=== PATIENT | female | born 1975 | race Hispanic/Latino ===

== ENCOUNTER → 2018-08-11 | Outpatient (CLI) | payer MEDICARE, OTHER | END | disposition home or self-care (01) | LOC: RAH 15:41 | PROVIDERS: ATTEND Surgery | DX: K40.90 Unilateral inguinal hernia, without obstruction or gangrene, not specified as recurrent (principal) | CPT/HCPCS: 76882 ==

== ENCOUNTER 2024-08-07 18:01 | Emergency (ER) | payer OTHER ==
[~2024-08-07] VITALS: Ht 162.6 cm; Wt 98.0 kg
--- NOTE | 2024-08-07 18:33 | ERN ---
ED Note History of Present Illness Stated Complaint: FLANK PAIN Chief Complaint: Flank Pain Time Seen by MD: 18:04 Dictation: PATIENT IS A 49-YEAR-OLD FEMALE COMING IN TODAY WITH RIGHT FLANK PAIN THAT RADIATES TO RIGHT UPPER AND LOWER QUADRANTS ONSET 2-3 DAYS PRIOR TO ARRIVAL. SHE HAS HAD NAUSEA WITHOUT VOMITING LOW-GRADE FEVER. STATES SHE HAS A HISTORY OF KIDNEY STONES. STORE C[facility]IER IS IN [place]. Allergies: Coded Allergies: No Known Drug Allergies (Unverified Allergy, Unknown, 08/07/24) Past Medical History Past Medical History: Diabetes-Type II, High Cholesterol, Hypertension Surgical History: Other History: Not Applicable RN Note Reviewed/Agreed w/PFSH: Yes Review of System Dictation CONSTITUTIONAL: NEGATIVE EXCEPT FOR HPI FEVER HEAD/FACE: NEGATIVE EXCEPT FOR HPI EENT: NEGATIVE EXCEPT FOR HPI RESPIRATORY: NEGATIVE EXCEPT FOR HPI GASTROINTESTINAL/ABDOMINAL: NEGATIVE EXCEPT FOR HPI RIGHT FLANK PAIN THAT RADIATES TO RIGHT LOWER QUADRANT/NAUSEA GENITOURINARY: NEGATIVE EXCEPT FOR HPI MUSCULOSKELETAL: NEGATIVE EXCEPT FOR HPI INTEGUMENTARY: NEGATIVE EXCEPT FOR HPI NEUROLOGICAL/PSYCH: NEGATIVE EXCEPT FOR HPI HEMATOLOGIC/LYMPHATIC: NEGATIVE EXCEPT FOR HPI ALL SYSTEMS NEGATIVE, EXCEPT NOTED ABOVE. 13 POINT REVIEW OF SYSTEMS ASSESSED AND ALL NEGATIVE EXCEPT FOR ABOVE. Initial Vital Sign VS Vital Signs Date Time Temp Pulse Resp B/P (MAP) Pulse Ox O2 Delivery O2 Flow Rate FiO2 08/07/24 18:26 98.2 90 16 140/90 100 Room Air 08/07/24 20:35 0 21 Physical Exam Dictation VITAL SIGNS REVIEWED GENERAL APPEARANCE: ALERT, ORIENTED X 3, MODERATE ACUTE DISTRESS, WELL DEVELOPED, NOURISHED. HEAD AND FACE: NON-TRAUMATIC. EYES: PERRL, PINK CONJUNCTIVAS, EYELID NO TRAUMA, ANTERIOR CHAMBER WITH ARCUS SENILIS. EARS: PINNAS INTACT AND NO SIGNS OF TRAUMA OR ERYTHEMA EAR CANALS CLEAR AND NO DISCHARGE TM NO ERYTHEMA NOSE: NO DISCHARGE, NO BLEEDING. OROPHARYNX: MOUTH NORMAL, TONGUE PINK, PHARYNX CLEAR,NO ERYTHEMA, TONSILS NO EXUDATES, NO ABSCESSES NOTED, MUCOUS MEMBRANE MOIST NECK: SUPPLE, NON-TENDER, NO THYROMEGALY, NO MASSES, NO JVD, NO BRUITS BREAST:DEFERRED CHEST:NO TENDERNESS, NO CREPITUS, NO PARADOXICAL MOVEMENT, NO RETRACTIONS LUNGS:CLEAR, WELL-VENTILATED, SYMMETRIC, NO RALES, NO WHEEZING, NO RHONCHI, NO STRIDOR, GOOD BREATH SOUNDS BILATERALLY HEART: REGULAR RATE, REGULAR RHYTHM, NO MURMUR, NO GALLOPS VASCULAR: NO PERIPHERAL EDEMA, ABDOMEN: SOFT, POSITIVE BOWEL SOUNDS, NONDISTENDED, NO GUARDING, , NO REBOUND, NO MASSES NO HEPATOMEGALY, NO SPLENOMEGALY, NO ROBLES'S SIGN, NO HERNIAS. POSITIVE CVAT RIGHT RECTAL: DEFERRED GENITAL: DEFERRED NEUROLOGICAL: NORMAL SPEECH, MOTOR FUNCTION INTACT, SENSORY FUNCTION INTACT MUSCULOSKELETAL: NECK NONTENDER, FULL RANGE OF MOTION, BACK NONTENDER, FULL RANGE OF MOTION, EXTREMITIES: NONTENDER, FULL RANGE OF MOTION SKIN: COLOR PINK, DRY, NO TURGOR, NO RASH, NO LACERATIONS, NO ABRASIONS, NO CONTUSIONS. LYMPHATIC: DEFERRED L EXAM Results (Laboratory/Radiology) Laboratory/Radiology Laboratory Tests Test 08/07/24 19:37 08/07/24 20:46 White Blood Count 10.5 K/uL (4.8-10.8) Red Blood Count 4.20 MIL/uL (4.00-5.50) Hemoglobin 11.1 g/dL (12.0-16.0) L Hematocrit 34.6 % (36-48) L Mean Corpuscular Volume 82.4 fL (79-99) Mean Corpuscular Hemoglobin 26.4 pg (27.0-33.0) L Mean Corpuscular Hemoglobin Concent 32.1 g/dL (32.0-36.0) Red Cell Distribution Width 13.6 % (11.0-15.5) Platelet Count 349 K/uL (130-400) Mean Platelet Volume 10.7 fL (7.5-10.5) H Immature Granulocyte % (Auto) 0.4 % (0-1) Neutrophils (%) (Auto) 72.4 % (40.0-77.0) Lymphocytes (%) (Auto) 17.5 % (21.0-51.0) L Monocytes (%) (Auto) 7.9 % (3.0-13.0) Eosinophils (%) (Auto) 1.0 % (0.0-8.0) Basophils (%) (Auto) 0.8 % (0.0-5.0) Neutrophils # (Auto) 7.6 K/uL (1.8-7.7) Lymphocytes # (Auto) 1.8 K/uL (1.0-4.8) Monocytes # (Auto) 0.8 K/uL (0.1-1.0) Eosinophils # (Auto) 0.10 K/uL (0.00-0.70) Basophils # (Auto) 0.08 K/uL (0.00-0.20) Absolute Immature Granulocyte (auto 0.04 K/uL (0-1) Nucleated Red Blood Cells 0.0 % (0.0-0.19) Sodium Level 143 mmol/L (136-145) Potassium Level 3.7 mmol/L (3.5-5.1) Chloride Level 105 mmol/L (101-111) Carbon Dioxide Level 29 mmol/L (21-32) Blood Urea Nitrogen 10 mg/dL (7-18) Creatinine 0.8 mg/dL (0.5-1.0) Glomerular Filtration Rate Calc 90 mL/min (>90) Random Glucose 205 mg/dL (70-105) H Lactic Acid Level 1.8 mmol/L (0.8-2.5) Total Calcium 8.7 mg/dL (8.5-10.1) Lipase 40 U/L (16-77) Urine Color LIGHT-YELLOW (YELLOW) Urine Appearance CLEAR (CLEAR) Urine pH 5.0 (5.0-8.0) Urine Specific [place] 1.022 (1.001-1.031) Urine Protein 10 mg/dL (NEGATIVE) H Urine Glucose (UA) TRACE mg/dL (NEGATIVE) H Urine Ketones NEGATIVE mg/dL (NEGATIVE) Urine Occult Blood MODERATE (NEGATIVE) H Urine Nitrate NEGATIVE (NEGATIVE) Urine Bilirubin NEGATIVE mg/dL (NEGATIVE) Urine Urobilinogen 0.2 mg/dL (0.2-1.0) Urine Leukocyte Esterase NEGATIVE Bill/uL Urine RBC 26-50 /HPF (0-1) H Urine WBC 2-5 /HPF (0-1) H Urine Squamous Epithelial Cells FEW /HPF (0-2) Urine Bacteria None /HPF (None Seen) Urine Hyaline Casts 2-5 /LPF (0-1 /LPF) H Signed PATIENT: TAYA SHAY MR#: [id number] : 1975 SEX: F AGE: 49 LOCATION: [facility] ORDER [id number] STATUS: REG ER REPORT#: [id number] SERVICE [id number] REASON: RIGHT FLANK PAIN THAT RADIATES TO RIGHT LOWER QUADRANT. ORDERING PHYSICIAN: GREYSON WISE NP PROCEDURE: ABD PEL WO - CT ABDOMEN/PELVIS W/O CONTRAST CT ABDOMEN/PELVIS W/O CONTRAST INDICATION: RIGHT FLANK PAIN THAT RADIATES TO RIGHT LOWER QUADRANT. TECHNIQUE: CT ABDOMEN/PELVIS W/O CONTRAST. Oral contrast was not given. Coronal and sagittal reformats were performed. CT was performed with one or more of the following dose reduction techniques: Automated exposure control, adjustment of the mA and/or kV according to the patient's size, or use of the iterative reconstruction technique. Comparison: None. FINDINGS: The noncontrast nature this study limits evaluation of abdominal viscera. No pulmonary consolidation or pleural effusion is seen. There is hepatic steatosis. No calcified gallstone is seen. The spleen, pancreas, and adrenal glands are within normal limits. Very mild right hydronephrosis and hydroureter with 4 mm calculus in the proximal ureter. Small right renal cyst is seen. 2 mm calculus in the lower pole of the right kidney and upper pole of the left kidney. Prominent uterus with 6.9 cm mass in the left fundus suggesting fibroid. Consider correlation with nonemergent pelvic ultrasound. No bowel obstruction identified. Appendix is normal in caliber. Degenerative changes of the spine. Visualized aorta is normal in caliber. IMPRESSION: 1. Very mild right hydronephrosis and hydroureter with 4 mm calculus in the proximal ureter. 2 mm calculus in the lower pole of the right kidney and upper pole of the left kidney. Small right renal cyst is seen. 2. Fibroid uterus. Consider correlation with nonemergent pelvic ultrasound.. Labs Reviewed?: Yes ED Course ED Course Orders Procedure Category Date Status Time Cbc With Differential LAB 08/07/24 Complete 18:29 Urinalysis Profile LAB 08/07/24 Complete 18:29 0.9%Nacl 1000ml (Ns PHA 08/07/24 Complete 1000ml) 18:30 Ketorolac PHA 08/07/24 Complete Tromethamine 30mg/Ml 18:30 Ondansetron 4mg Inj PHA 08/07/24 Complete (Zofran 4mg Inj) 18:30 Ct Abdomen/Pelvis W/O CT 08/07/24 Resulted Contrast 18:29 Lipase LAB 08/07/24 Complete 18:29 Basic Metabolic Panel LAB 08/07/24 Complete 18:29 Blood Cult RICHARD 08/07/24 In Process 18:31 Lactic Acid LAB 08/07/24 Complete 18:31 Tamsulosin Hcl PHA 08/07/24 Complete (Flomax) 20:00 Current Medications Medications (Trade) Dose Ordered Sig/Odalys Route PRN Reason Start Time Stop Time Status Last Admin Dose Admin Ketorolac Tromethamine (toRADol) 30 mg ONCE ONCE IVP 08/07/24 18:30 08/07/24 18:35 DC 08/07/24 18:56 Ondansetron HCl (zoFRAN 4MG INJ) 4 mg ONCE ONCE IVP 08/07/24 18:30 08/07/24 18:35 DC 08/07/24 18:56 Sodium Chloride 1,000 ml @ 0 mls/hr ONCE ONCE IV 08/07/24 18:30 08/07/24 18:35 DC 08/07/24 18:56 Tamsulosin HCl (FloMAX) 0.4 mg ONCE ONCE PO 08/07/24 20:00 08/07/24 20:01 DC 08/07/24 20:45 Vital Signs Date Time Temp Pulse Resp B/P (MAP) Pulse Ox O2 Delivery O2 Flow Rate FiO2 08/07/24 20:35 98.2 79 18 152/69 98 Room Air* 0 21 08/07/24 18:26 98.2 90 16 140/90 100 Room Air 2105/patient discharged home with4 mm right nephrolithiasis with small hydronephrosis. Discharged home with Ibuprofen and Flomax told to follow up with in the next 1-2 days increase your water intake. Medical Decision Making MDM MDM: Differential diagnosis: Urolithiasis/pyelonephritis/ureteral colic/hydro urete r/UTI Rationale: Tests considered and ordered secondary to shared decision making include: Radiology/labs Previous outside records reviewed: Old ER visits. Risk of complication and/or morbidity or mortality of patient management: None Medications-Per medication reconciliation Need for hospitalization: Patient does not meet criteria for hospitalization. No Need for emergency major/minor surgery: No There are no social concerns with this patient. Prescription drug management Flomax/ibuprofen/Zofran Prescriptions will include symptomatic care Patient's prior external medical records from other ER visits were reviewed by me as indicated. Prior testing and results from previous visits were reviewed. Prior tests were taken into account with medical decision making and resource utilization, independent historian/historians were used to obtain complete medical history. I independently interpreted the test that were performed, results were reviewed by me and considered findings on radiology if ordered. Medical management and examination interpretation discussions were had by me with other qualified healthcare professionals as indicated for the patient's care. DX & DISP Disposition: Discharge Departure Impression: Primary Impression: Hydronephrosis, right Additional Impressions: Urolithiasis, Ureteral colic Condition: Stable Scripts Ondansetron (Ondansetron Odt) 4 Mg Tab.rapdis 4 MG PO Q6HPRN PRN for nausea, #16 TAB 0 Refills Prov: GREYSON WISE NP 08/07/24 Ibuprofen (Ibuprofen 800 mg Tab) 800 Mg Tab 800 MG PO Q8H PRN for fever or pain, #30 TAB 0 Refills Prov: GREYSON WISE NP 08/07/24 Tamsulosin HCl (Flomax) 0.4 Mg Cap.er.24h 0.4 MG PO DAILY, #15 CAPSULE.DR Prov: GREYSON WISE NP 08/07/24 Additional Instructions: Follow-up with primary care provider in 1 to 2 days. Take medications as directed here in the emergency room. Okay to continue home medications unless otherwise discussed during your visit in the emergency room today. Return to your nearest emergency room if symptoms worsen or if there is no improvement. Call 911 if you need immediate assistance. Take Tylenol or Motrin [id number] as needed and if no contraindications are present. Increase oral hydration. A wound culture or urine culture was ordered here in the emergency room department please follow-up with primary care provider and advise them to get repeat ports from our facility. If you had any Murphy wrap/splints t hat were applied here, please do not remove them until you see your primary care or specialty. Take Flomax daily for the next15 days. Take ibuprofen every 6-8 hours as needed for pain with food. Increase your water intake. Call urologist for appointment in the next 1-2 days. Referrals: SELF,REFERRAL (PCP) KARLEE WINTERS MD Time of Disposition: 21:06 I have reviewed the case, and I agree with, Diagnosis and Plan GREYSON WISE NP Aug 07, 2024 18:33
[2024-08-07] MEDS: ondanSETRON 4MG INJ IVP ONE (18:56)
[2024-08-07] MEDS: 0.9%NACL 1000ML 1,000 ML IV ONE (18:56)
[2024-08-07] MEDS: ketOROlac 30MG VIAL (30MG/ML) IVP ONE (18:56)
--- NOTE | 2024-08-07 19:33 | HMCIMG ---
CT ABDOMEN/PELVIS W/O CONTRAST INDICATION: RIGHT FLANK PAIN THAT RADIATES TO RIGHT LOWER QUADRANT. TECHNIQUE: CT ABDOMEN/PELVIS W/O CONTRAST. Oral contrast was not given. Coronal and sagittal reformats were performed. CT was performed with one or more of the following dose reduction techniques: Automated exposure control, adjustment of the mA and/or kV according to the patient's size, or use of the iterative reconstruction technique. Comparison: None. FINDINGS: The noncontrast nature this study limits evaluation of abdominal viscera. No pulmonary consolidation or pleural effusion is seen. There is hepatic steatosis. No calcified gallstone is seen. The spleen, pancreas, and adrenal glands are within normal limits. Very mild right hydronephrosis and hydroureter with 4 mm calculus in the proximal ureter. Small right renal cyst is seen. 2 mm calculus in the lower pole of the right kidney and upper pole of the left kidney. Prominent uterus with 6.9 cm mass in the left fundus suggesting fibroid. Consider correlation with nonemergent pelvic ultrasound. No bowel obstruction identified. Appendix is normal in caliber. Degenerative changes of the spine. Visualized aorta is normal in caliber. IMPRESSION: 1. Very mild right hydronephrosis and hydroureter with 4 mm calculus in the proximal ureter. 2 mm calculus in the lower pole of the right kidney and upper pole of the left kidney. Small right renal cyst is seen. 2. Fibroid uterus. Consider correlation with nonemergent pelvic ultrasound..
[2024-08-07 19:59] LABS: BASOPHILS # (AUTO) 0.08 K/uL (0.00-0.20); BASOPHILS % (AUTO) 0.8 % (0.0-5.0); HEMATOCRIT 34.6 % (36-48); IMMATURE GRANULOCYTE ABSOLUTE 0.04 K/uL (0-1); LYMPHOCYTES # (AUTO) 1.8 K/uL (1.0-4.8); LYMPHOCYTES % (AUTO) 17.5 % (21.0-51.0); MEAN CORPUSCULAR HEMOGLOBIN 26.4 pg (27.0-33.0); MEAN CORPUSCULAR HGB CONC 32.1 g/dL (32.0-36.0); MEAN CORPUSCULAR VOLUME 82.4 fL (79-99); MONOCYTES # (AUTO) 0.8 K/uL (0.1-1.0); MONOCYTES % (AUTO) 7.9 % (3.0-13.0); NEUTROPHILS # (AUTO) 7.6 K/uL (1.8-7.7); NEUTROPHILS % (AUTO) 72.4 % (40.0-77.0); PLATELET COUNT (AUTO) 349 K/uL (130-400); RED CELL DISTRIBUTION WIDTH 13.6 % (11.0-15.5); WHITE BLOOD COUNT (AUTO) 10.5 K/uL (4.8-10.8)
[2024-08-07 20:18] LABS: CREATININE 0.8 mg/dL (0.5-1.0); POTASSIUM 3.7 mmol/L (3.5-5.1)
[2024-08-07] MEDS: tamSULOsin HCL 0.4 MG CAP.ER.24H PO ONE (20:45)
[2024-08-07 20:57] LABS: APPEARANCE,URINE CLEAR (CLEAR); BILIRUBIN,URINE NEGATIVE (NEGATIVE); COLOR,URINE LIGHT-YELLOW (YELLOW); GLUCOSE, URINE (UA) TRACE mg/dL (NEGATIVE); KETONES,URINE NEGATIVE (NEGATIVE); LEUKOCYTE ESTERASE ,URINE NEGATIVE Leu/uL (NEGATIVE); NITRATE,URINE NEGATIVE (NEGATIVE); OCCULT BLOOD,URINE MODERATE (NEGATIVE); PROTEIN,URINE 10 mg/dL (NEGATIVE); UROBILINOGEN,URINE 0.2 mg/dL (0.2-1.0)
[2024-08-07 20:58] LABS: ADD UA MICROSCOPIC YES
[2024-08-07 21:00] LABS: MUCUS,URINE RARE LPF (None Seen); RBC,URINE 26-50 /HPF (0-1); SQUAMOUS EPITHELIAL CELL,UR FEW /HPF (0-2)
[2024-08-07] MEDS ORDERED: ONDA-243 PO (21:07)
[2024-08-07] MEDS ORDERED: TAMS-1 PO (21:07)
[2024-08-07] MEDS ORDERED: IBUP-2077 PO (21:07)
[2024-08-07 22:23] VITALS: BP 142/70; PULSE 76; RESP 18; TEMP 98.2; O2SAT 100
== END 2024-08-07 22:24 | disposition home or self-care (01) ==
LOC: EDH 18:01
DX: N13.2 Hydronephrosis with renal and ureteral calculous obstruction (principal); E11.9 Type 2 diabetes mellitus without complications; E78.00 Pure hypercholesterolemia, unspecified; I10 Essential (primary) hypertension; N28.1 Cyst of kidney, acquired
CPT/HCPCS: 99285; 74176; 96374; 96361; 96375; 80048; 83690; 85025; 87040 ×2; 83605; 81001; 36415; J1885; J7030; J2405